=== PATIENT | male | born 1990 | race Caucasian/White ===

== ENCOUNTER 2018-04-22 18:19 | Emergency (ER) | payer SELFPAY ==
--- NOTE | 2018-04-22 19:13 | ER Document Report ---
ED Medical Screen (RME) - General Chief Complaint: Insect Bite Stated Complaint: POSSIBLE TICK BITE Time Seen by Provider: 04/22/18 19:03 TRAVEL OUTSIDE OF THE [place] IN LAST 30 DAYS: No - HPI Patient complains to provider of: increased bruising, at tick bite Notes: 04/22/18 19:12 Normally healthy young man presents 2-1/2 weeks after a tick bite in his left groin. Patient now has a large area of ecchymosis nonblanching in his left groin along with left elbow in the medial aspect of his right upper extremity. Patient has no previous history of easy bruising or profound bruising a suffering from now. Patient also has some residual pain in his left axillary region at the point of the bite. Pain is 6/10 sharp in nature without radiation nothing makes it better or worse. Patient clearly identified an elastic tick that bit him several weeks ago. Denies any myalgias or does not recall being sick but he thought he had a cold 2 weeks ago. Suspicion for possible tickborne rickettsial infection. Will order CBC, BMP, coags to rule out coagulopathy secondary to Rickettsia infection - Related Data Allergies/Adverse Reactions: No Known Allergies Allergy (Verified 04/22/18 18:21) Past Medical History - Social History Chew tobacco use (# tins/day): No Frequency of alcohol use: Occasional Drug Abuse: None Renal/ Medical History: Denies: Hx Peritoneal Dialysis Physical Exam - Vital signs Vitals: Temp Pulse Resp BP Pulse Ox 98.7 F 79 16 138/90 H 99 04/22/18 18:25 04/22/18 18:25 04/22/18 18:25 04/22/18 18:25 04/22/18 18:25 Course - Vital Signs Vital signs: Temp Pulse Resp BP Pulse Ox 98.7 F 79 16 138/90 H 99 04/22/18 18:25 04/22/18 18:25 04/22/18 18:25 04/22/18 18:25 04/22/18 18:25 Doctor's Discharge - Discharge Referrals: DISHA SHAH NP [Primary Care Provider] - Follow up as needed
--- NOTE | 2018-04-22 19:37 | ER Document Report ---
ED Skin Rash/Insect Bite/Abscs - General Chief Complaint: Insect Bite Stated Complaint: POSSIBLE TICK BITE Time Seen by Provider: 04/22/18 19:03 TRAVEL OUTSIDE OF THE [place] IN LAST 30 DAYS: No - HPI Notes: 04/22/18 19:12 Normally healthy young man presents 2-1/2 weeks after a tick bite in his left groin. Patient now has a large area of ecchymosis nonblanching in his left groin along with left elbow in the medial aspect of his right upper extremity. Patient has no previous history of easy bruising or profound bruising a suffering from now. Patient also has some residual pain in his left axillary region at the point of the bite. Pain is 6/10 sharp in nature without radiation nothing makes it better or worse. Patient clearly identified atick that bit him several weeks ago. Denies any myalgias or does not recall being sick, no feversd Patient also states he was drinking heavily all weekend including until about 4 in the morning last night. Could be some new bruising when he hit his left elbow he says he was wrestling with his friends could be next reason for the right upper arm bruising. But he definitely does not recall getting kicked in the groin. - Related Data Allergies/Adverse Reactions: No Known Allergies Allergy (Verified 04/22/18 18:21) Past Medical History - Social History Smoking Status: Current Every Day Smoker Chew tobacco use (# tins/day): No Frequency of alcohol use: Occasional Drug Abuse: None Family History: Reviewed & Not Pertinent Patient has suicidal ideation: No Patient has homicidal ideation: No Renal/ Medical History: Denies: Hx Peritoneal Dialysis Review of Systems - Review of Systems Notes: REVIEW OF SYSTEMS: CONSTITUTIONAL: -fevers, -chills EENT: -eye pain, -difficulty swallowing, -nasal congestion CARDIOVASCULAR: -chest pain, -syncope. RESPIRATORY: -cough, -SOB GASTROINTESTINAL: -abdominal pain, -nausea, -vomiting, -diarrhea GENITOURINARY: -dysuria, -hematuria MUSCULOSKELETAL: -back pain, -neck pain SKIN: + echhommosis rash HEMATOLOGIC: -easy bruising or bleeding. LYMPHATIC: -swollen, enlarged glands. NEUROLOGICAL: -altered mental status or loss of consciousness, -headache, - neurologic symptoms PSYCHIATRIC: -anxiety, -depression. ALL OTHER SYSTEMS REVIEWED AND NEGATIVE. Physical Exam - Vital signs Vitals: Temp Pulse Resp BP Pulse Ox 98.7 F 79 16 138/90 H 99 04/22/18 18:25 04/22/18 18:25 04/22/18 18:25 04/22/18 18:25 04/22/18 18:25 - Notes Notes: PHYSICAL EXAMINATION: GENERAL: Well-appearing, well-nourished and in no acute distress. HEAD: Atraumatic, normocephalic. EYES: Pupils equal round and reactive to light, extraocular movements intact, sclera anicteric, conjunctiva are normal. ENT: nares patent, oropharynx clear without exudates. Moist mucous membranes. NECK: Normal range of motion, supple without lymphadenopathy LUNGS: Breath sounds clear to auscultation bilaterally and equal. No wheezes rales or rhonchi. HEART: Regular rate and rhythm without murmurs ABDOMEN: Soft, nontender, normoactive bowel sounds. No guarding, no rebound. No masses appreciated. EXTREMITIES: Normal range of motion, no pitting or edema. No cyanosis. NEUROLOGICAL: Cranial nerves grossly intact. Normal speech, normal gait. Normal sensory and motor exams. PSYCH: Normal mood, normal affect. SKIN: Large ecchymosis medial aspect left thigh large ecchymosis left elbow ecchymosis medial aspect right upper extremity. Course - Re-evaluation Re-evalutation: 04/22/18 20:26 Pleasant young man presents after tick bite 2 weeks ago. Patient denies he had any symptoms of fever chills or rash. Patient has ecchymosis on his left anterior thigh left elbow and right arm. No petechiae afebrile extensive lab workup unremarkable he has no coagulopathy. Patient does have elevated liver enzymes indicative of drinking alcohol. Patient did describe drinking until 3 or 4 in the morning last night. Noticing the bruising this morning. Patient be discharged home with prescription for doxycycline and follow-up with his PCP given strict return precautions 04/22/18 20:28 Patient has no complaints at this time - Vital Signs Vital signs: Temp Pulse Resp BP Pulse Ox 98.7 F 79 16 138/90 H 99 04/22/18 18:25 04/22/18 18:25 04/22/18 18:25 04/22/18 18:25 04/22/18 18:25 - Laboratory Result Diagrams: 04/22/18 19:26 04/22/18 19:26 Laboratory results interpreted by me: 04/22/18 04/22/18 19:26 19:26 RBC 4.06 L MCV 105 H MCH 36.4 H RDW 14.6 H BUN 6 L AST 335 H ALT 237 H Discharge - Discharge Clinical Impression: Tick bite Qualifiers: Encounter type: initial encounter Qualified Code(s): W57.XXXA - Bitten or stung by nonvenomous insect and other nonvenomous arthropods, initial encounter Condition: Stable Instructions: Tick Bites ([facility]) Prescriptions: Doxycycline Hyclate 100 mg PO BID #20 capsule Referrals: DISHA SHAH NP [Primary Care Provider] - Follow up as needed [facility] [NO [facility]AL MD] - Follow up as needed
[2018-04-22 19:47] LABS: ABSOLUTE BASOPHILS # (AUTO) 0.1 10^3/uL (0.0-0.2); ABSOLUTE EOSINOPHILS # (AUTO) 0.1 10^3/uL (0.0-0.6); ABSOLUTE LYMPHOCYTES (AUTO) 1.5 10^3/uL (0.5-4.7); ABSOLUTE MONOCYTES (AUTO) 0.5 10^3/uL (0.1-1.4); ABSOLUTE NEUT (AUTO) 3.5 10^3/uL (1.7-8.2); BASOPHILS % (AUTO) 1.5 % (0-2); EOSINOPHILS % (AUTO) 1.2 % (0-6); HEMATOCRIT 42.8 % (37.9-51.0); HEMOGLOBIN 14.8 g/dL (13.5-17.0); LYMPHOCYTES % (AUTO) 26.2 % (13-45); MEAN CORPUSCULAR HEMOGLOBIN 36.4 pg (27.0-33.4); MEAN CORPUSCULAR HGB CONC 34.5 g/dL (32.0-36.0); MEAN CORPUSCULAR VOLUME 105 fl (80-97); MONOCYTES % (AUTO) 9.2 % (3-13); PLATELET COUNT 165 10^3/uL (150-450); RED BLOOD COUNT 4.06 10^6/uL (4.35-5.55); RED CELL DISTRIBUTION WIDTH 14.6 % (11.5-14.0); SEGMENTED NEUTROPHILS % (AUTO) 61.9 % (42-78); TOTAL CELLS COUNTED % (AUTO) 100 %; WHITE BLOOD COUNT 5.7 10^3/uL (4.0-10.5)
[2018-04-22 19:58] LABS: INTERNATIONAL RATION (INR) 0.82; PARTIAL THROMBOPLASTIN TIME 25.1 SEC (23.5-35.8); PROTHROMBIN TIME 11.7 SEC (11.4-15.4)
[2018-04-22 20:06] LABS: ALANINE AMINOTRANSFERASE 237 U/L (21-72); ALBUMIN 4.8 g/dL (3.5-5.0); ALKALINE PHOSPHATASE 80 U/L (38-126); ANION GAP 11 (5-19); ASPARTATE AMINO TRANSFERASE 335 U/L (17-59); BILIRUBIN,DIRECT 0.4 mg/dL (0.0-0.4); BILIRUBIN,TOTAL 0.6 mg/dL (0.2-1.3); BLOOD UREA NITROGEN 6 mg/dL (7-20); CALCIUM 9.7 mg/dL (8.4-10.2); CARBON DIOXIDE 28 mmol/L (22-30); CHLORIDE 102 mmol/L (98-107); GLUCOSE 79 mg/dL (75-110); POTASSIUM 4.4 mmol/L (3.6-5.0); SODIUM 141.1 mmol/L (137-145); TOTAL PROTEIN 7.7 g/dL (6.3-8.2)
[2018-04-22 20:39] VITALS: BP 122/84
== END 2018-04-22 20:36 | disposition home or self-care (01) ==
LOC: ER 18:19
DX: S30.861A Insect bite (nonvenomous) of abdominal wall, initial encounter (principal); S50.02XA Contusion of left elbow, initial encounter; W57.XXXA Bitten or stung by nonvenomous insect and other nonvenomous arthropods, initial encounter; Y93.72 Activity, wrestling; F17.200 Nicotine dependence, unspecified, uncomplicated
CPT/HCPCS: 36415; 80048; 80076; 85025; 85610; 85730; 99282

== ENCOUNTER 2020-05-23 20:48 | Emergency (ER) | payer SELFPAY ==
[2020-05-23 21:10] LABS: ABSOLUTE BASOPHILS # (AUTO) 0.1 10^3/uL (0.0-0.2); ABSOLUTE EOSINOPHILS # (AUTO) 0.2 10^3/uL (0.0-0.6); ABSOLUTE LYMPHOCYTES (AUTO) 3.1 10^3/uL (0.5-4.7); ABSOLUTE MONOCYTES (AUTO) 0.6 10^3/uL (0.1-1.4); ABSOLUTE NEUT (AUTO) 3.9 10^3/uL (1.7-8.2); BASOPHILS % (AUTO) 0.8 % (0-2); EOSINOPHILS % (AUTO) 2.3 % (0-6); HEMATOCRIT 45.2 % (37.9-51.0); HEMOGLOBIN 15.6 g/dL (13.5-17.0); LYMPHOCYTES % (AUTO) 39.4 % (13-45); MEAN CORPUSCULAR HEMOGLOBIN 31.8 pg (27.0-33.4); MEAN CORPUSCULAR HGB CONC 34.4 g/dL (32.0-36.0); MEAN CORPUSCULAR VOLUME 93 fl (80-97); PLATELET COUNT 255 10^3/uL (150-450); RED BLOOD COUNT 4.89 10^6/uL (4.35-5.55); RED CELL DISTRIBUTION WIDTH 13.6 % (11.5-14.0); SEGMENTED NEUTROPHILS % (AUTO) 49.5 % (42-78); TOTAL CELLS COUNTED % (AUTO) 100 %; WHITE BLOOD COUNT 7.9 10^3/uL (4.0-10.5)
[2020-05-23] MEDS ORDERED: NORMAL SALINE 1000 ML 1,000 ML IV ONE ×2 (21:13→22:54)
[2020-05-23 21:22] LABS: ALBUMIN 4.3 g/dL (3.5-5.0); ALKALINE PHOSPHATASE 62 U/L (38-126); ANION GAP 6 (5-19); ASPARTATE AMINO TRANSFERASE 72 U/L (17-59); BILIRUBIN,TOTAL 0.5 mg/dL (0.2-1.3); BLOOD UREA NITROGEN 10 mg/dL (7-20); CALCIUM 8.7 mg/dL (8.4-10.2); CARBON DIOXIDE 28 mmol/L (22-30); CHLORIDE 105 mmol/L (98-107); CREATINE KINASE 184 U/L (55-170); GLUCOSE 146 mg/dL (75-110)
[2020-05-23 21:33] LABS: CREATINE KINASE MB 2.13 ng/mL (<4.55)
[2020-05-23 21:38] LABS: TROPONIN I < 0.012 ng/mL
[2020-05-23 21:43] LABS: POTASSIUM 2.9 mmol/L (3.6-5.0)
--- NOTE | 2020-05-23 21:54 | ER Document Report ---
Entered by ASHLEY OLIVARES SCRIBE 05/23/202110 Acting as scribe for:ANDREW LARSON IV, MD ED Substance Abuse / Acc. OD - General Chief Complaint: Possible Overdose Stated Complaint: POSSIBLE OVERDOSE Time Seen by Provider: 05/23/20 21:03 Mode of Arrival: Medic Information source: Patient, Emergency Med Personnel Notes: This 30 year old male patient brought in by EMS presents to the ED today with complaints of possible overdose that occurred just prior to arrival. According to ED nurse, the patient "snorted heroin" and EMS found the patient unresponsive and being bagged by [facility] upon their arrival, no chest compressions. EMS administered 1mg Narcan IV and the patient became responsive. ED nurse reports that the patient complained of sternal chest pain. Denies shortness of breath. TRAVEL OUTSIDE OF THE [place] IN LAST 30 DAYS: No - Related Data Allergies/Adverse Reactions: No Known Allergies Allergy (Verified 04/22/18 18:21) Past Medical History - General Information source: Emergency Med Personnel - Social History Smoking Status: Unknown if Ever Smoked Cigarette use (# per day): No Chew tobacco use (# tins/day): No Smoking Education Provided: No Drug Abuse: Heroin Family History: Reviewed & Not Pertinent Patient has suicidal ideation: No Patient has homicidal ideation: No Review of Systems - Review of Systems Constitutional: See HPI, Other - Possible overdose EENT: No symptoms reported Cardiovascular: See HPI, Chest pain Respiratory: See HPI. denies: Short of breath Gastrointestinal: No symptoms reported Genitourinary: No symptoms reported Male Genitourinary: No symptoms reported Musculoskeletal: No symptoms reported Skin: No symptoms reported Hematologic/Lymphatic: No symptoms reported Neurological/Psychological: No symptoms reported -: Yes All other systems reviewed and negative Physical Exam - Vital signs Vitals: Resp Pulse Ox 16 100 05/23/20 20:53 05/23/20 20:53 - General General appearance: Other - Arousable and subsequently alert to person, place, and signifcant other. Speaks in full sentences - HEENT Head: Normocephalic, Atraumatic Eyes: Normal Notes: Pupils are mid-range - Respiratory Respiratory status: No respiratory distress Chest status: Nontender Breath sounds: Normal Chest palpation: Normal - Cardiovascular Rhythm: Regular, Tachycardia Heart sounds: Normal auscultation Murmur: No Friction rub: No Gallop: None auscultated - Abdominal Inspection: Normal Distension: No distension Bowel sounds: Normal Tenderness: Nontender - Abdomen soft Organomegaly: No organomegaly - Back Back: Normal, Nontender - Extremities General upper extremity: Normal inspection General lower extremity: Normal inspection - Neurological Neuro grossly intact: Yes - Psychological Associated symptoms: Normal affect, Normal mood - Skin Skin Temperature: Warm Skin Moisture: Diaphoretic Skin Color: Normal Course - Re-evaluation Re-evalutation: 05/24/20 00:50 Patient is refusing to give urine for urinalysis and urine drug screen. Patient states he wants to get dressed, leave, go home and get some sleep. Patient also stated that he knows the reason that his mental status was altered, stating that "it was drugs." This MD explained patient the risks of leaving AGAINST MEDICAL ADVICE and leaving without a completed evaluation which include misdiagnosis, respiratory arrest, cardiac arrest, permanent disability, permanent loss of current quality of life, . Patient expressed understanding of risks and stated he is still want to leave anyway. Completed results of ED MSE discussed with patient. Patient encouraged to return at any time if he decide to seek further evaluation or treatment. Emergency signs and symptoms, reasons to return to the emergency department discussed with patient. - Vital Signs Vital signs: Temp Pulse Resp BP Pulse Ox 97.5 F 14 111/76 99 05/23/20 22:01 05/23/20 21:31 05/23/20 21:31 05/23/20 21:31 - Laboratory Result Diagrams: 05/23/20 20:55 05/23/20 20:55 Laboratory results interpreted by me: 05/23/20 20:55 Potassium 2.9 L* Glucose 146 H AST 72 H ALT 83 H Creatine Kinase 184 H - EKG Interpretation by Me Additional EKG results interpreted by me: 05/24/20 00:53 EKG obtained 05/23/2020 at 2126 hrs. was interpreted by this MD. Findings sinus tachycardia, heart rate 105, normal axis, P waves preceding QRS complexes, QRS complexes appear narrow, there are no obvious patterns of ST segment elevation or depression present to suggest acute myocardial ischemia or infarction. Impression sinus tachycardia with nonspecific ST segments. Discharge - Discharge Clinical Impression: Altered mental status Qualifiers: Altered mental status type: unspecified Qualified Code(s): R41.82 - Altered mental status, unspecified Disposition: AGAINST MEDICAL ADVICE Additional Instructions: Return to the emergency department anytime if you decide to seek further evaluation or treatment. Return to the Emergency Department without delay if any worse. HOME CARE INSTRUCTIONS & INFORMATION: Thank you for choosing us for your medical needs. We hope you're satisfied with the care you received. After you leave, you must properly care for your problem and, at the same time, observe its progress. Any condition can change. Some illnesses can change rapidly over hours or days. If your condition worsens, return to the Emergency Department or see your physician promptly. ABOUT YOUR X-RAYS AND EKG'S: If you had an EKG or X-rays taken, they have been read by the Emergency Physician. The X-rays and EKG's will also be read by a Radiologist or Hydro Station Operator within 24 hours. If discrepancies are noted, you will be notified by telephone. Please be certain the ED has a correct telephone number & address where you can be reached. Also, realize that some fractures or abnormalities do not show up on initial X-rays. If your symptoms continue, see your physician. ABOUT YOUR LABORATORY TEST: If you had laboratory tests, the results have been reviewed by the Emergency Physician. Some test results (for example cultures) may not be available for several days. You will be contacted if any test result shows you need additional treatment. Please be certain the ED has a correct telephone number and address where you can be reached. ABOUT YOUR MEDICATIONS: You will receive instructions on how to take your medicine on the prescription label you receive. Additional information may be provided by the Pharmacy. If you have questions afterwards, call the ED for clarification or further instructions. Some prescribed medications may cause drowsiness. Do not perform tasks such as driving a car or operating machinery without consulting your Pharmacist. If you feel you need a refill of pain medication, your condition will need re-evaluation. Please do not call for a refill of any medication. ABOUT YOUR SIGNATURE: Signature of this document acknowledges to followin. Understanding that you received emergency treatment and that you may be released before al medical problems are known or treated. Please be certain the ED has a correct phone number & address where you can be reached. 2. Acknowledgement that you will arrange for follow-up care as recommended. 3. Authorization for the Emergency Physician to provide information to your follow-up Physician in order to maximize your care. AT ANY TIME, IF YOUR SYMPTOMS CHANGE SIGNIFICANTLY OR WORSEN OR YOU DEVELOP NEW SYMPTOMS, RETURN TO THE EMERGENCY DEPARTMENT IMMEDIATELY FOR RE-EVALUATION. OUR GOAL IS TO PROVIDE EXCELLENT MEDICAL CARE! WE HOPE THAT WE HAVE MET YOUR EXPECTATIONS DURING YOUR EMERGENCY DEPARTMENT VISIT AND THAT YOU FEEL YOU HAVE RECEIVED EXCELLENT CARE! Referrals: ALEX NICHOLE MD [HONORARY] - 05/24/20 I personally performed the services described in the documentation, reviewed and edited the documentation which was dictated to the scribe in my presence, and it accurately records my words and actions.
[2020-05-23] MEDS ORDERED: POTASSIUM CHLORIDE 10 MEQ TABLET.ER PO ONE (22:54)
[2020-05-24 01:07] VITALS: BP 114/74
--- NOTE | 2020-05-24 01:07 | EKG REPORT ---
SEVERITY:- OTHERWISE NORMAL ECG - SINUS TACHYCARDIA : Confirmed by: Shelly Dumont MD 24-May-2020 01:06:32
== END 2020-05-24 01:13 | disposition left against medical advice (07) ==
LOC: ER 20:48
DX: F11.10 Opioid abuse, uncomplicated (principal); R41.82 Altered mental status, unspecified; R07.9 Chest pain, unspecified; R00.0 Tachycardia, unspecified; Z53.29 Procedure and treatment not carried out because of patient's decision for other reasons
CPT/HCPCS: 93005; 99284; 96360; 96361; 36415; 82553; 80307; 82550; 85025; 80053; 84484; 93010; J7030